=== PATIENT | female | born 1970 | race Caucasian/White ===

== ENCOUNTER 2019-08-16 14:04 | Emergency (ER) | payer MEDICARE, MEDICAID ==
--- NOTE | 2019-08-16 14:50 | RAD ---
CHEST 2 VIEWS: Date: 08/16/2019 HISTORY: Cough. COMPARISON: 05/03/2018. FINDINGS: Heart size is within normal limits. The lungs are clear. No confluent pneumonia, overt edema, or pleu ral effusion. IMPRESSION: No significant acute intrathoracic disease. Overall stable from prior study. POS: [facility]
== END 2019-08-16 15:17 | disposition home or self-care (01) ==
LOC: MADERS 14:04
DX: J20.9 Acute bronchitis, unspecified (principal); F32.9 Major depressive disorder, single episode, unspecified; F41.9 Anxiety disorder, unspecified; G43.909 Migraine, unspecified, not intractable, without status migrainosus; F17.210 Nicotine dependence, cigarettes, uncomplicated; Z79.899 Other long term (current) drug therapy
CPT/HCPCS: 71046